=== PATIENT | female | born 1990 | race Caucasian/White ===

== ENCOUNTER 2017-06-22 12:09 | Inpatient (IN) | payer BC ==
[2017-06-22] MEDS ORDERED: Nalbuphine 20 MG/1 ML Amp IVPUSH PRN (12:24)
[2017-06-22] MEDS ORDERED: Ondansetron 4 MG/2 ML SDV IVPUSH PRN ×2 (12:24→12:36)
[2017-06-22] MEDS ORDERED: Lidocaine 1% 50 ML MDV INJECT ONE (12:24)
[2017-06-22] MEDS ORDERED: Sodium Chloride 0.9% 10 ML Syringe FLUSH PRN (12:24)
[2017-06-22] MEDS ORDERED: Oxytocin/Lactated Ringers 10 UNIT/1,000 ML BAG IV SCH (12:30)
[2017-06-22] MEDS ORDERED: ePHEDrine 50 MG/ML SDV IVPUSH PRN (12:36)
[2017-06-22] MEDS ORDERED: fentaNYL 100 MCG/2 ML SDV EPIDUR PRN (12:36)
--- NOTE | 2017-06-22 12:39 | PCM.PREANE ---
Preanesthetic Assessment - Anesthesia/Transfusion/Family Hx Transfusion History: No Prior Transfusion(s) Intubation History: Unknown - Review of Systems Pulmonary: No Symptoms (Mild asthma noted with patient not taking inhaler since /current every day smoker:) - Physical Assessment NPO Status Date: 06/22/17 Pulse: 105 O2 Sat by Pulse Oximetry: 98 Respiratory Rate: 18 Blood Pressure: 120/70 Temperature: 36.6 C Vital Signs: Last Vital Signs Temp 36.6 C 06/22/17 12:25 Pulse 105 H 06/22/17 12:25 Resp 18 06/22/17 12:25 BP 120/70 06/22/17 12:25 Pulse Ox 98 06/22/17 12:25 Height: 1.6 m Weight: 124.647 kg ASA Class: 2 Mental Status: Alert & Oriented x3 - Allergies Allergies/Adverse Reactions: Allergies Allergy/AdvReac Type Severity Reaction Status Date / Time No Known Allergies Allergy Verified 06/22/17 12:26 - Anesthesia Plan Pre-Op Medication Ordered: None - Acknowledgements Anesthesia Type Planned: Epidural Pt an Appropriate Candidate for the Planned Anesthesia: Yes Alternatives and Risks of Anesthesia Discussed w Pt/Guardian: Yes Pt/Guardian Understands and Agrees with Anesthesia Plan: Yes PreAnesthesia Questionnaire - Past Health History Medical/Surgical History: Denies Medical/Surgical History - SUBSTANCE USE Smoking Status *Q: Current Every Day Smoker Tobacco Use Within Last Twelve Months: Cigarettes Second Hand Smoke Exposure: No Days Per Week of Alcohol Use: 0 Recreational Drug Use History: No - HOME MEDS Home Medications: Home Meds oxyCODONE HCl/Acetaminophen [Percocet 5-325 mg Tablet] 1 - 2 tab PO Q6H PRN #20 tablet 05/01/15 [Rx] - CURRENT (IN HOUSE) MEDS Current Meds: Current Medications Lactated Ringer's (Ringers, Lactated) 1,000 mls @ 100 mls/hr IV ASDIRECTED MEE Oxytocin/Lactated Ringer's (Pitocin In Lr 10 Units/1,000 Ml) 10 unit in 1,000 mls @ 12 mls/hr IV TITRATE MEE; 2 MUNITS/MIN PRN Reason: Protocol Nalbuphine HCl (Nubain) 10 mg IVPUSH Q2H PRN PRN Reason: Pain (moderate 4-6) Ondansetron HCl (Zofran) 4 mg IVPUSH Q4H PRN PRN Reason: Nausea/Vomiting Sodium Chloride (Saline Flush) 10 ml FLUSH ASDIRECTED PRN PRN Reason: Keep Vein Open Discontinued Medications Lidocaine HCl (Xylocaine 1%) 10 ml INJECT ONETIME ONE Stop: 06/22/17 12:25
[2017-06-22] MEDS ORDERED: Bupivacaine/fentaNYL/NS 100 ML Bag EPIDUR SCH (12:45)
--- NOTE | 2017-06-22 13:18 | PCM.LDHP ---
L&D History of Present Illness - General Date of Service: 06/22/17 Admit Problem/Dx: Patient Status Order with Admit Dx/Problem Admission Diagnosis: Intrauterine at 39 and 3/7th weeks gestation. - History of Present Illness Introduction:: History of Present Illness: The patient is 27-year-old, 2, para 1-0-0-1 white female with an VAIBHAV of 06/27/2017, who is admitted for elective induction of labor. She has had irregular contractions for one day. course: The patient's last menstrual period was on 09/04/2016, was definite, and using no control at the time of conception. Her LMP was supported by ultrasounds done on 11/16/2016, 02/17/2017, and 03/20/2017. She has a history of herpes simplex virus and began prophylactic treatment with acyclovir TID at 36 weeks of gestation. She does have a history of anxiety and depression which was treated with Lexapro prior to . She had an Parsons Depression Screen score of 19 on 02/14/2017. She reports daily anxiety attacks throughout . Current smoker. She does desire an epidural. She received her tdap vaccine on 04/17/2017. Quad screen was negative. Group B strep screen was negative. She does plan to breastfeed. Her course was unremarkable in that she had a weight gain of 240 up to 275 pounds. Her vital signs were stable through and her fundal height growth was appropriate. Laboratory Testing: Showed blood to be O positive with a negative antibody screen. Her hemoglobin was 12.7 at the first visit. Platelets were 189,000. She is rubella immune. RPR is nonreactive. Her urine culture was negative. Hepatitis and HIV assays were negative. Chlamydia and gonorrhea were negative. Her quad screen was negative on 01/15/2017. Her second trimester testing showed a hemoglobin of 12.1 and platelets were 161,000. her 1-hour glucose was 79 - normal. Group B strep was negative. Allergies: none Medications: 1. Acyclovir 400 mg oral table TID 2. Albuterol sulfate Inhalation Nebulization solution - every 4-6 hours as needed for wheezing 3. Ventolin HFA - 1 to 2 puffs every 4 to 6 hours as needed 4. vitamin - 1 table daily Past Medical History: Depression and anxiety; treated with Lexapro prior to Asthma Herpes simplex virus Past Surgical History: Appendectomy 2000 Tonsillectomy 2002 [place] teeth extraction - Related Data Allergies/Adverse Reactions: Allergies Allergy/AdvReac Type Severity Reaction Status Date / Time No Known Allergies Allergy Verified 06/22/17 12:26 Home Medications: Home Meds oxyCODONE HCl/Acetaminophen [Percocet 5-325 mg Tablet] 1 - 2 tab PO Q6H PRN #20 tablet 05/01/15 [Rx] Past Medical History - Past Health History Medical/Surgical History: Denies Medical/Surgical History Social & Family History - Family History Other Family History: Family History: Mother: alive; healthy Father: alive; healthy Brother: alive; healthy Sister: alive; healthy Maternal Grandmother: alive; healthy Maternal Grandfather: ; unknown cause, possibly cancer Paternal Grandmother: alive; healthy Paternal Grandfather: alive; healthy No family history of bleeding disorders, anesthesia reaction, or complications - Tobacco Use Smoking Status *Q: Current Every Day Smoker Years of Tobacco use: 8 Used Tobacco, but Quit: No Second Hand Smoke Exposure: No - Alcohol Use Days Per Week of Alcohol Use: 0 - Recreational Drug Use Recreational Drug Use: No - Living Situation & Occupation Social History Comment: Patient is single. Employed at [employer]. Father of baby is Jordan Rizo. Denies alcohol and drug use during . She does smoke approximatley 1/2 pack per day. She has smoked for over 10 years. H&P Review of Systems - Review of Systems: Review Of Systems: See Below Free Text/Narrative: Respiratory: Does have asthma. Denies shortness of breath, breathing difficultly, and cough. Cardiovascular: Denies palpations, chest pain, and history of murmur. GI: Occasional nausea. Denies constipation, diarrhea, vomiting, and blood in stool. : Changes associated with . Denies burning with urination and blood in urine. Musculoskeletal: Minimal edema on occasion. Hematologic: Denies history of blood clots and bleeding disorders Psychiatric: History of anxiety and depression. Anxiety attacks occur daily. L&D Exam - Exam Exam: See Below - Vital Signs Vital Signs: Last Vital Signs Temp 97.9 F 06/22/17 12:39 Pulse 105 H 06/22/17 12:39 Resp 18 06/22/17 12:39 BP 120/70 06/22/17 12:39 Pulse Ox 98 06/22/17 12:39 General: Well-developed, well-nourished, pleasant female of stated age, in no acute distress. Vital Signs: Blood pressure is on last evaluation in clinic on 06/21/2017 was 112/72. Weight was 275 with pregravid weight of 240 . Her height is 5 feet 3 inches. Body mass index prior to was 42.5. heart rate was 133. Skin: Warm and dry without lesions. Lungs: Clear to auscultation bilaterally Cardiovascular: Regular rate and rhythm without murmurs Breasts: Exam is deferred, having been done at first visit and found to be normal. Abdomen: Protuberant with with a fundal height of 38 cm. Baby in a vertex presentation. Cervical exam yesterday in clinic was 2 cm, 90% effaced, soft, -2 station, and posterior position Extremities: Show no significant edema. Weight: 274 lb 12.8 oz - Patient Data Lab Results Last 24 hrs: Laboratory Results - last 24 hr 06/22/17 Range/Units 12:39 WBC 9.00 (3.98-10.04) K/mm3 RBC 3.56 L (3.98-5.22) M/mm3 Hgb 11.1 L (11.2-15.7) gm/L Hct 32.7 L (34.1-44.9) % MCV 91.9 (79.4-94.8) fl MCH 31.2 (25.6-32.2) pg MCHC 33.9 (32.2-35.5) g/dl RDW Std Deviation 43.8 (36.4-46.3) fL Plt Count 167 L (182-369) K/mm3 MPV 12.1 (9.4-12.3) fl Neut % (Auto) 72.4 H (34.0-71.1) % Lymph % (Auto) 19.0 L (19.3-51.7) % [place] % (Auto) 7.2 (4.7-12.5) % Eos % (Auto) 0.9 (0.7-5.8) Baso % (Auto) 0.1 (0.1-1.2) % Neut # (Auto) 6.51 H (1.56-6.13) K/mm3 Lymph # (Auto) 1.71 (1.18-3.74) K/mm3 Douglas # (Auto) 0.65 H (0.24-0.36) K/mm3 Eos # (Auto) 0.08 (0.04-0.36) K/mm3 Baso # (Auto) 0.01 (0.01-0.08) K/mm3 Result Diagrams: 06/22/17 12:39 Problem List Initiated/Reviewed/Updated: Yes Orders Last 24hrs: Active Orders 24 hr Category Date Time Status Patient Status [ADT] Routine ADT 06/22/17 12:24 Active Activity as Tolerated [RC] PFP Care 06/22/17 12:24 Active Communication Order [RC] ASDIRECTED Care 06/22/17 12:24 Active Heart Tones [RC] ASDIRECTED Care 06/22/17 12:25 Active Notify Provider [RC] ASDIRECTED Care 06/22/17 12:36 Active Notify Provider [RC] PFP Care 06/22/17 12:24 Active Notify Provider [RC] PRN Care 06/22/17 12:24 Active Oxygen Therapy [RC] ASDIRECTED Care 06/22/17 12:36 Active Peripheral IV Care [RC] . DIRECTED Care 06/22/17 12:25 Active Pulse Oximetry [RC] ASDIRECTED Care 06/22/17 12:36 Active Pump Management, Intrathecal [RC] ASDIRECTED Care 06/22/17 12:26 Active Vital Signs [RC] PER UNIT ROUTINE Care 06/22/17 12:24 Active Regular Diet [DIET] Diet 06/22/17 Dinner Active Bupivacaine/fentaNYL/NS [fentaNYL/Bupivacaine/NS 2 MCG- Med 06/22/17 12:45 Active 0.125% 100 ML] 100 ml EPIDUR ASDIRECTED Lactated Ringers [Ringers, Lactated] 1,000 ml Med 06/22/17 12:30 Active IV ASDIRECTED Nalbuphine [Nubain] Med 06/22/17 12:24 Active 10 mg IVPUSH Q2H PRN Ondansetron [Zofran] Med 06/22/17 12:36 Active 4 mg IVPUSH ONETIME PRN Ondansetron [Zofran] Med 06/22/17 12:24 Active 4 mg IVPUSH Q4H PRN Oxytocin/Lactated Ringers [Pitocin in LR 10 Units/1,000 Med 06/22/17 12:30 Active ML] 10 unit in 1,000 ml IV TITRATE Sodium Chloride 0.9% [Saline Flush] Med 06/22/17 12:24 Active 10 ml FLUSH ASDIRECTED PRN ePHEDrine [ePHEDrine Sulfate] Med 06/22/17 12:36 Active 5 mg IVPUSH ASDIRECTED PRN fentaNYL [Sublimaze] Med 06/22/17 12:36 Active 100 mcg EPIDUR Q3H PRN Electronic Heart Tones Ext w TOCO [WOMSER] Oth 06/22/17 12:24 Ordered Routine Electronic Heart Tones Internal [WOMSER] Per Unit Oth 06/22/17 12:24 Ordered Routine Peripheral IV Insertion Adult [OM.PC] Routine Oth 06/22/17 12:24 Ordered Resuscitation Status Routine Resus Stat 06/22/17 12:24 Ordered Medication Orders Ephedrine Sulfate (Ephedrine Sulfate) 5 mg IVPUSH ASDIRECTED PRN PRN Reason: Hypotension Fentanyl (Sublimaze) 100 mcg EPIDUR Q3H PRN PRN Reason: Pain Fentanyl/Bupivacaine HCl (Fentanyl/Bupivacaine/Ns 2 Mcg-0.125% 100 Ml) 100 ml EPIDUR ASDIRECTED MEE Lactated Ringer's (Ringers, Lactated) 1,000 mls @ 100 mls/hr IV ASDIRECTED MEE Oxytocin/Lactated Ringer's (Pitocin In Lr 10 Units/1,000 Ml) 10 unit in 1,000 mls @ 12 mls/hr IV TITRATE MEE; 2 MUNITS/MIN PRN Reason: Protocol Nalbuphine HCl (Nubain) 10 mg IVPUSH Q2H PRN PRN Reason: Pain (moderate 4-6) Ondansetron HCl (Zofran) 4 mg IVPUSH Q4H PRN PRN Reason: Nausea/Vomiting Ondansetron HCl (Zofran) 4 mg IVPUSH ONETIME PRN PRN Reason: Nausea/Vomiting Sodium Chloride (Saline Flush) 10 ml FLUSH ASDIRECTED PRN PRN Reason: Keep Vein Open Assessment/Plan Comment:: Assessment: 1. Term intrauterine at 39 and 3/7th weeks gestational age for elective induction of labor 2. History of herpes simplex virus 3. Group B strep negative 4. Patient desires epidural for pain control 5. Patient plans to nurse 6. Depression and anxiety Plan: 1. Anticipate normal spontaneous vaginal delivery 2. acyclovir TID for HSV 3. epidural PRN 4. CBC before epidural 5. support nursing decision 6. Monitor for depression and anxiety in period
[2017-06-22] MEDS: Lactated Ringers 1,000 ML IV SCH ×3 (13:47→20:13)
--- NOTE | 2017-06-22 14:51 | PCM.PREANE ---
Preanesthetic Assessment - Anesthesia/Transfusion/Family Hx Anesthesia History: Prior Anesthesia Without Reaction Family History of Anesthesia Reaction: No Transfusion History: No Prior Transfusion(s) Intubation History: Unknown - Review of Systems General: No Symptoms Pulmonary: No Symptoms (smokes 3/4 pack per day times 10 years/ Mild asthma and last took inhaler approx. 2 months ago.) Cardiovascular: No Symptoms Gastrointestinal: No Symptoms (GERD), Nausea Neurological: No Symptoms Other: Reports: Depression, Anxiety - Physical Assessment NPO Status Date: 06/22/17 NPO Status Time: 12:00 Pulse: 105 O2 Sat by Pulse Oximetry: 98 Respiratory Rate: 18 Blood Pressure: 120/70 Temperature: 36.6 C Vital Signs: Last Vital Signs Temp 36.6 C 06/22/17 12:39 Pulse 105 H 06/22/17 12:39 Resp 18 06/22/17 12:39 BP 120/70 06/22/17 12:39 Pulse Ox 98 06/22/17 12:39 Height: 1.6 m Weight: 124.647 kg ASA Class: 2 Mental Status: Alert & Oriented x3 Airway Class: Mallampati = 2 Dentition: Reports: Normal Dentition, Caries Thyro-Mental Finger Breadths: 3 Mouth Opening Finger Breadths: 3 ROM/Head Extension: Full Lungs: Clear to Auscultation, Normal Respiratory Effort Cardiovascular: Regular Rate, Regular Rhythm, No Murmurs - Lab Values: Laboratory Last Values WBC 9.00 K/mm3 (3.98-10.04) 06/22/17 12:39 RBC 3.56 M/mm3 (3.98-5.22) L 06/22/17 12:39 Hgb 11.1 gm/L (11.2-15.7) L 06/22/17 12:39 Hct 32.7 % (34.1-44.9) L 06/22/17 12:39 MCV 91.9 fl (79.4-94.8) 06/22/17 12:39 MCH 31.2 pg (25.6-32.2) 06/22/17 12:39 MCHC 33.9 g/dl (32.2-35.5) 06/22/17 12:39 RDW Std Deviation 43.8 fL (36.4-46.3) 06/22/17 12:39 Plt Count 167 K/mm3 (182-369) L 06/22/17 12:39 MPV 12.1 fl (9.4-12.3) 06/22/17 12:39 Neut % (Auto) 72.4 % (34.0-71.1) H 06/22/17 12:39 Lymph % (Auto) 19.0 % (19.3-51.7) L 06/22/17 12:39 [place] % (Auto) 7.2 % (4.7-12.5) 06/22/17 12:39 Eos % (Auto) 0.9 (0.7-5.8) 06/22/17 12:39 Baso % (Auto) 0.1 % (0.1-1.2) 06/22/17 12:39 Neut # (Auto) 6.51 K/mm3 (1.56-6.13) H 06/22/17 12:39 Lymph # (Auto) 1.71 K/mm3 (1.18-3.74) 06/22/17 12:39 [place] # (Auto) 0.65 K/mm3 (0.24-0.36) H 06/22/17 12:39 Eos # (Auto) 0.08 K/mm3 (0.04-0.36) 06/22/17 12:39 Baso # (Auto) 0.01 K/mm3 (0.01-0.08) 06/22/17 12:39 Above labs reviewed and noted. - Allergies Allergies/Adverse Reactions: Allergies Allergy/AdvReac Type Severity Reaction Status Date / Time No Known Allergies Allergy Verified 06/22/17 12:26 - Anesthesia Plan Pre-Op Medication Ordered: None - Acknowledgements Anesthesia Type Planned: Epidural Pt an Appropriate Candidate for the Planned Anesthesia: Yes Alternatives and Risks of Anesthesia Discussed w Pt/Guardian: Yes Pt/Guardian Understands and Agrees with Anesthesia Plan: Yes PreAnesthesia Questionnaire - Past Health History Medical/Surgical History: Denies Medical/Surgical History Respiratory History: Reports: Asthma Genitourinary History: Reports: STD, Other (See Below) Other Genitourinary History: HSV [employer]EV[employer] WHEEL [employer]ER History: Reports: Psychiatric History: Reports: Anxiety, Depression - Infectious Disease History Infectious Disease History: Reports: Chicken Pox - Past Surgical History HEENT Surgical History: Reports: Oral Surgery, Tonsillectomy GI Surgical History: Reports: Appendectomy - SUBSTANCE USE Smoking Status *Q: Current Every Day Smoker Tobacco Use Within Last Twelve Months: Cigarettes Second Hand Smoke Exposure: No Days Per Week of Alcohol Use: 0 Recreational Drug Use History: No - HOME MEDS Home Medications: Home Meds oxyCODONE HCl/Acetaminophen [Percocet 5-325 mg Tablet] 1 - 2 tab PO Q6H PRN #20 tablet 05/01/15 [Rx] - CURRENT (IN HOUSE) MEDS Current Meds: Current Medications Ephedrine Sulfate (Ephedrine Sulfate) 5 mg IVPUSH ASDIRECTED PRN PRN Reason: Hypotension Fentanyl (Sublimaze) 100 mcg EPIDUR Q3H PRN PRN Reason: Pain Fentanyl/Bupivacaine HCl (Fentanyl/Bupivacaine/Ns 2 Mcg-0.125% 100 Ml) 100 ml EPIDUR ASDIRECTED MEE Lactated Ringer's (Ringers, Lactated) 1,000 mls @ 100 mls/hr IV ASDIRECTED MEE Last Admin: 06/22/17 13:47 Dose: 100 mls/hr Oxytocin/Lactated Ringer's (Pitocin In Lr 10 Units/1,000 Ml) 10 unit in 1,000 mls @ 12 mls/hr IV TITRATE MEE; 2 MUNITS/MIN PRN Reason: Protocol Last Titration: 06/22/17 14:20 Dose: 3 munits/min, 18 mls/hr Nalbuphine HCl (Nubain) 10 mg IVPUSH Q2H PRN PRN Reason: Pain (moderate 4-6) Ondansetron HCl (Zofran) 4 mg IVPUSH Q4H PRN PRN Reason: Nausea/Vomiting Ondansetron HCl (Zofran) 4 mg IVPUSH ONETIME PRN PRN Reason: Nausea/Vomiting Sodium Chloride (Saline Flush) 10 ml FLUSH ASDIRECTED PRN PRN Reason: Keep Vein Open Discontinued Medications Lidocaine HCl (Xylocaine 1%) 10 ml INJECT ONETIME ONE Stop: 06/22/17 12:25
[2017-06-22] MEDS ORDERED: Bupivacaine 0.25% 10 ML SDV ONE (22:22)
--- NOTE | 2017-06-22 23:17 | PCM.SN ---
- Free Text/Narrative Note: Catarino 27-year-old 2 now para 2002 white female who was admitted approximately midday on 06/22/2017 at 39-2/7 weeks gestational age for an elective induction of labor. She started on Pitocin initially and eventually had artificial rupture membranes which resulted in clear amniotic fluid. She progressed steadily through labor and at approximately 2030 hours she became completely dilated. She delivered a viable, gomez, male named Ron in a left occiput anterior position. He weighed 7 lbs. 3 oz. (3250 g), had Apgars of 8 and 9 and was vigorous upon delivery. Nose and mouth were bulb suctioned. Cord was clamped 2 and the baby's father cut the cord. Baby was placed on mom's abdomen. Cord blood was obtained. The umbilical cord had 3 vessels. The placenta delivered in a Misa presentation at 2258 hrs. It appeared complete, intact. Patient's perineum was intact without lacerations. Os and was administered after the delivery the baby to facilitate increase in uterine tone and decrease risk of bleeding. Patient is nursing. Condition good. Estimated blood loss 100 mL.
[2017-06-22] MEDS ORDERED: Docusate Sodium 100 MG Cap PO PRN (23:47)
[2017-06-22] MEDS ORDERED: Lanolin 100% Cream 7 GM Tube TOP PRN (23:47)
[2017-06-22] MEDS ORDERED: Witch Hazel Medicated Pads 100/Jar TOP PRN (23:47)
[2017-06-22] MEDS ORDERED: Acetaminophen 325 MG Tab PO PRN (23:47)
[2017-06-22] MEDS ORDERED: Benzocaine/Menthol 20%-0.5% Spray 56 GM Canister TOP PRN (23:47)
[2017-06-23] MEDS: Ibuprofen 600 MG Tab PO PRN ×3 (00:30→18:40)
--- NOTE | 2017-06-23 07:38 | PCM.SN ---
- Free Text/Narrative Note: patient is doing well on day 1. She has minimal lochia, was voiding well. Epidural is worn off. She is ambulating without concerns. Vital signs stable, patient is afebrile. Abdomen soft, nontender, uterus at umbilicus, soft. Legs are nontender with only minimal edema. White blood count is 9.0. Hemoglobin is 11.1. Hematocrit is 32.7 and platelets are 167. Assessment/plan: day 1doing well. Probably home tomorrow. Routine cares.
[2017-06-23] MEDS ORDERED: Prenatal Multivitamin with Calcium/Folic Acid/Iron Tab PO SCH (09:00)
[2017-06-24] MEDS: Ibuprofen 600 MG Tab PO PRN (01:55)
--- NOTE | 2017-06-24 07:50 | PCM.DCSUM1 ---
Discharge Summary - Discharge Data Discharge Date: 06/24/17 Discharge Disposition: Home, Self-Care 01 Condition: Good - Patient Summary/Data Hospital Course: Catarino 27-year-old 2 now para 2002 white female who was admitted approximately midday on 06/22/2017 at 39-2/7 weeks gestational age for an elective induction of labor. She started on Pitocin initially and eventually had artificial rupture membranes which resulted in clear amniotic fluid. She progressed steadily through labor and at approximately 2030 hours she became completely dilated. She delivered a viable, gomez, male named Ron in a left occiput anterior position. He weighed 7 lbs. 3 oz. (3250 g), had Apgars of 8 and 9 and was vigorous upon delivery. Nose and mouth were bulb suctioned. Cord was clamped 2 and the baby's father cut the cord. Baby was placed on mom's abdomen. Cord blood was obtained. The umbilical cord had 3 vessels. The placenta delivered in a Misa presentation at 2258 hrs. It appeared complete, intact. Patient's perineum was intact without lacerations. Os and was administered after the delivery the baby to facilitate increase in uterine tone and decrease risk of bleeding. Patient is nursing. Condition good. Estimated blood loss 100 mL. Discharge in good condition PPD2. Unremarkable routine course. - Patient Instructions Diet: Usual Diet as Tolerated Activity: No Strenuous Activities Driving: May Drive Today Showering/Bathing: May Shower Notify Provider of: Fever, Increased Pain, Swelling and Redness, Drainage, Nausea and/or Vomiting - Discharge Plan Home Medications: Home Meds oxyCODONE HCl/Acetaminophen [Percocet 5-325 mg Tablet] 1 - 2 tab PO Q6H PRN #20 tablet 05/01/15 [Rx] Referrals: Robert Garces MD [Primary Care Provider] - (6 weeks) - Patient Data Vitals - Most Recent: Last Vital Signs Temp 36.3 C 06/24/17 03:58 Pulse 78 06/24/17 04:00 Resp 12 06/24/17 03:58 BP 105/63 06/24/17 03:58 Pulse Ox 98 06/24/17 04:00 Weight - Most Recent: 124.647 kg I&O - Last 24 hours: Intake & Output 06/23/17 06/24/17 06/24/17 22:59 06:59 14:59 Intake Total 480 Balance 480 Lab Results - Last 24 hrs: Laboratory Results - last 24 hr 06/24/17 Range/Units 06:45 WBC 7.83 (3.98-10.04) K/mm3 RBC 3.33 L (3.98-5.22) M/mm3 Hgb 10.1 L (11.2-15.7) gm/L Hct 31.5 L (34.1-44.9) % MCV 94.6 (79.4-94.8) fl MCH 30.3 (25.6-32.2) pg MCHC 32.1 L (32.2-35.5) g/dl RDW Std Deviation 44.9 (36.4-46.3) fL Plt Count 131 L (182-369) K/mm3 MPV 12.6 H (9.4-12.3) fl Med Orders - Current: Current Medications Acetaminophen (Tylenol) 650 mg PO Q4H PRN PRN Reason: mild pain or fever Benzocaine/Menthol (Dermoplast Pain Relief [place]) 0 gm TOP ASDIRECTED PRN PRN Reason: Perineal Comfort Measure Last Admin: 06/23/17 00:30 Dose: 1 can Docusate Sodium (Colace) 100 mg PO BID PRN PRN Reason: Constipation Last Admin: 06/23/17 00:30 Dose: 100 mg Emollient Ointment (Lansinoh Hpa) 0 gm TOP ASDIRECTED PRN PRN Reason: Sore Nipples Last Admin: 06/23/17 15:45 Dose: 1 applic Ibuprofen (Motrin) 600 mg PO Q4H PRN PRN Reason: Mild pain or fever Last Admin: 06/24/17 01:55 Dose: 600 mg Prenat Multivit/Tow Motor Driver/Iron/Folic Ac ( Plus Iron) 1 each PO DAILY MEE Last Admin: 06/23/17 10:28 Dose: 1 each Witch Maegan (Tucks) 1 pad TOP ASDIRECTED PRN PRN Reason: Hemorrhoid pain Discontinued Medications Ephedrine Sulfate (Ephedrine Sulfate) 5 mg IVPUSH ASDIRECTED PRN PRN Reason: Hypotension Fentanyl (Sublimaze) 100 mcg EPIDUR Q3H PRN PRN Reason: Pain Last Admin: 06/22/17 19:02 Dose: 100 mcg Fentanyl/Bupivacaine HCl (Fentanyl/Bupivacaine/Ns 2 Mcg-0.125% 100 Ml) 100 ml EPIDUR ASDIRECTED MEE Last Admin: 06/22/17 19:02 Dose: 100 ml Lactated Ringer's (Ringers, Lactated) 1,000 mls @ 100 mls/hr IV ASDIRECTED MEE Last Admin: 06/22/17 20:13 Dose: 100 mls/hr Oxytocin/Lactated Ringer's (Pitocin In Lr 10 Units/1,000 Ml) 10 unit in 1,000 mls @ 12 mls/hr IV TITRATE MEE; 2 MUNITS/MIN PRN Reason: Protocol Last Titration: 06/22/17 22:57 Dose: 999 mls/hr Lidocaine HCl (Xylocaine 1%) 10 ml INJECT ONETIME ONE Stop: 06/22/17 12:25 Last Admin: 06/22/17 23:29 Dose: Not Given Nalbuphine HCl (Nubain) 10 mg IVPUSH Q2H PRN PRN Reason: Pain (moderate 4-6) Ondansetron HCl (Zofran) 4 mg IVPUSH Q4H PRN PRN Reason: Nausea/Vomiting Ondansetron HCl (Zofran) 4 mg IVPUSH ONETIME PRN PRN Reason: Nausea/Vomiting Sodium Chloride (Saline Flush) 10 ml FLUSH ASDIRECTED PRN PRN Reason: Keep Vein Open *Q Meaningful Use (DIS) - VTE *Q VTE Criteria *Q: - Stroke *Q Stroke Criteria *Q: - AMI *Q AMI Criteria *Q:
[2017-06-24 09:18] VITALS: BP 126/85
== END 2017-06-24 09:30 | disposition home or self-care (01) | DRG 560 ==
LOC: JD.OB 12:09 → OBSVTOIN 22:56 → JD.OB 22:56
PROVIDERS: ADMIT Obstetrics & Gynecology; ATTEND Obstetrics & Gynecology
PROC: 10E0XZZ Delivery of Products of Conception, External Approach (ICD-10-PCS; principal; 2017-06-22)
PROC: 3E033VJ Introduction of Other Hormone into Peripheral Vein, Percutaneous Approach (ICD-10-PCS; 2017-06-22)
PROC: 10907ZC Drainage of Amniotic Fluid, Therapeutic from Products of Conception, Via Natural or Artificial Opening (ICD-10-PCS; 2017-06-22)
PROC: 00HU33Z Insertion of Infusion Device into Spinal Canal, Percutaneous Approach (ICD-10-PCS; 2017-06-22)
PROC: 3E0R3CZ (ICD-10-PCS; 2017-06-22)
DX: O99.52 Diseases of the respiratory system complicating childbirth (principal); J45.909 Unspecified asthma, uncomplicated; Z3A.39 39 weeks gestation of pregnancy; Z37.0 Single live birth; O99.334 Smoking (tobacco) complicating childbirth; F17.210 Nicotine dependence, cigarettes, uncomplicated; O99.344 Other mental disorders complicating childbirth; F41.9 Anxiety disorder, unspecified; F32.9 Major depressive disorder, single episode, unspecified; O69.81X0 Labor and delivery complicated by cord around neck, without compression, not applicable or unspecified
CPT/HCPCS: 36415; 85025; 85027; A9270-GY; J2590; J3010; J7120

== ENCOUNTER 2021-12-06 09:56 | Emergency (ER) | payer BC ==
[2021-12-06 10:23] VITALS: PULSE 72
[2021-12-06] MEDS ORDERED: HYDROmorphone 1 MG/ML Syringe IM ONE (11:16)
[2021-12-06] MEDS ORDERED: Cyclobenzaprine 10 MG Tab PO ONE (11:16)
[2021-12-06] MEDS ORDERED: Ketorolac 60 MG/2 ML SDV IM ONE (11:16)
[2021-12-06 13:20] VITALS: BP 108/73
== END 2021-12-06 12:40 | disposition home or self-care (01) ==
LOC: JD.ED 09:56
DX: M54.50 Low back pain, unspecified (principal); J45.909 Unspecified asthma, uncomplicated; Z72.0 Tobacco use
CPT/HCPCS: 72100; 96372; 99283; A9270; J1170; J1885